=== PATIENT | female | born 1935 | race Caucasian/White ===

== ENCOUNTER 2018-12-07 11:05 | Inpatient (IN) ==
--- NOTE | 2018-12-07 11:53 | XRay Report ---
XR ankle RT min 3V routine CLINICAL HISTORY: 83 years-old Female presenting with fall. TECHNIQUE: Frontal, oblique, and lateral views of the right ankle were obtained. COMPARISON: None. FINDINGS: Minimally displaced fracture of the distal fibular metaphysis extending from the posterior cortex pro ximally to the anterior cortex distally as well as with a oblique orientation from the lateral cortex proximally to the medial cortex distally. Ankle mortise remains congruent. Nondisplaced transversely oriented medial malleolar fracture. Suspected posterior malleolar fracture, also nondisplaced. Enthe sophyte at the origin of the plantar fascia. Advanced degenerative changes at the tarsometatarsal art iculations. Diffuse surrounding soft tissue edema at the level of the ankle and in the lower leg and foot. IMPRESSION: Minimally displaced to nondisplaced trimalleolar fracture. No malalignment of the ankle mortise at th is time. Electronically signed by: Bertram Telles M.D. 12/07/2018 11:52 AM
--- NOTE | 2018-12-07 11:55 | XRay Report ---
XR hip RT 2V w pelvis CLINICAL HISTORY: 83 years-old Female presenting with fall this morning, right hip pain, history of r ight hip replacement. TECHNIQUE: Single frontal view of the pelvis and frontal and frog-leg lateral views of the right hip were obtained. COMPARISON: 04/08/2015. FINDINGS: Post surgical changes of total right hip arthroplasty. No periprosthetic fracture or lucency. No hard dalton breakage. Degenerative changes of lower lumbar spine. Sacral iliac joints, pubic symphysis, and left hip joint congruent. Arcuate lines of the sacrum intact. Bony pelvis intact apart from postsurgi jay jay change. No radiographic soft tissue abnormality. IMPRESSION: 1. Total right hip arthroplasty without evidence of complication. 2. No acute osseous injury of the pelvis or right hip. Electronically signed by: Bertram Telles M.D. 12/07/2018 11:53 AM
[2018-12-07] MEDS ORDERED: HYDROCODONE/ACETAMOPHEN 5/325MG TAB PO STA (12:07)
--- NOTE | 2018-12-07 13:00 | History & Physical Report ---
Date of Service December 07, 2018 Assessment & Plan (1) Closed displaced trimalleolar fracture of right ankle: Mechanical Fall Closed right ankle fracture Ankle X ray:Minimally displaced to nondisplaced trimalleolar fracture. No malalignment of the ankle mortise at this time. Splint placed while in ED Pain control Orthopedics consulted bowel regimen to prevent constipation PT/OT May need rehab Case management consulted Depression Continue Sertraline Dyslipidemia Continue atorvastatin Hypothyroidism Continue Levothyroxine H/o pulmonary embolism Off Coumadin since 1 month as per recommendations from PCP H/O urinary incontinence Dementia No acute issues DVT Px: Lovenox SQ Code Status DNI/DNR as per my discussion with the patient Disposition: May need Rehab placement History of Present Illness Chief Complaint: Mechanical Fall Primary Care Provider: nIes Loredo DO Patient is an 83-year-old female with history of depression, dyslipidemia, hypothyroidism, h/o pulmonary embolism, urinary incontinence, dementia and other problems presents with history of a fall and right leg pain since the fall. Patient states that she was visiting [place] today and after she parked her car, she was trying to put a coin in parking meter and accidentally slipped curbside and fell on her right side. Patient complains of pain in her right ankle since the fall, 2/10 intensity, aching type. Denies any numbness, tingling, weakness. Also denies any head trauma, loss of consciousness, dizziness. Admits to having mild frontal headache. Patient's right leg was splinted while in ED. She also had a fall 3 weeks ago resulting in right great toe fracture. Denies any history of chest pain, SOB, palpitations, orthopnea, PND, dizziness, pedal edema, diaphoresis, cough, wheezing, hemoptysis, fever, chills, change in vision, double/blurry vision, vertigo, slurred speech, facial deformity, nausea, vomiting, abdominal pain, blood in stools, diarrhea, change in appetite, weight loss, dysuria, hematuria, recent change in medications. Allergies Allergy/AdvReac Type Severity Reaction Status Date / Time No Known Allergies Allergy Unverified 12/07/18 12:27 Home Medications Home Medications Medication Instructions Recorded Confirmed Type alendronate 70 mg PO Q7D 12/07/18 12/07/18 History atorvastatin 10 mg PO DAILY 12/07/18 12/07/18 History gabapentin 600 mg PO TID 12/07/18 12/07/18 History levothyroxine 50 mcg PO DAILY 12/07/18 12/07/18 History sertraline 100 mg PO DAILY 12/07/18 12/07/18 History Past Med/Surg History Medical History Dementia Depression History of pulmonary embolism Hyperlipidemia Hypothyroidism PE (pulmonary thromboembolism) Urine incontinence Surgical History S/P cholecystectomy Family History Mother Cancer Father Diabetes Social History Preferred Language: Kazakh Feels Safe at Home: Yes Smoking Status: Never smoker Hx Alcohol Use: No Hx Substance Use: No Review of Systems Review of Systems: All systems reviewed & are unremarkable except as noted in HPI & below Physical Exam Physical Exam: Physical Exam: Vitals signs as noted above General Appearance:Moderately built and nourished, no apparent distress Head: normocephalic, Atraumatic Eyes: normal inspection, EOMI Neck: supple, Trachea midline Respiratory/Chest: Normal breath sounds, Clear to auscultation, No accessory muscle use Cardiovascular: S1, S2, No murmur Abdomen/GI:Soft, Non tender, Bowel sounds present, no guarding/rigidity Extremities/Musculoskelatal:normal inspection, no edema, R ight Lower extremity in splint Neurologic/Psych:AAOX3, grossly no focal neurological deficits Skin: normal color, warm Results & Data Vital Signs (Past 12 Hours) Vital Signs Temp Pulse Resp BP Pulse Ox 12/07/18 11:10 36.6 C 70 18 166/90 H 97 Laboratory Results Short CBC 12/07/18 Range/Units 13:08 WBC 9.36 (4.8-10.8) K/uL Hgb 14.5 (12.0-16.0) g/dL Hct 43.9 (37-47) % Plt Count 244 (130-400) K/uL BMP 12/07/18 13:08 Sodium 143 Potassium 4.4 Chloride 108 H Carbon Dioxide 30 BUN 18 Creatinine 0.79 Glucose 96 Calcium 9.0 Liver Function 12/07/18 Range/Units 13:08 Total Bilirubin 0.3 (0.2-1) mg/dl AST 24 (15-37) U/L ALT 22 (12-78) U/L Alkaline Phosphatase 72 (45-117) U/L Albumin 3.6 (3.4-5.0) gm/dl Diagnostic Findings Right Ankle X ray: Minimally displaced to nondisplaced trimalleolar fracture. No malalignment of the ankle mortise at this time. Right Hip X ray: 1. Total right hip arthroplasty without evidence of complication. 2. No acute osseous injury of the pelvis or right hip. Medications Administered Home Medications Medication Instructions Recorded Confirmed alendronate 70 mg PO Q7D 12/07/18 12/07/18 atorvastatin 10 mg PO DAILY 12/07/18 12/07/18 gabapentin 600 mg PO TID 12/07/18 12/07/18 levothyroxine 50 mcg PO DAILY 12/07/18 12/07/18 sertraline 100 mg PO DAILY 12/07/18 12/07/18 (1) Closed displaced trimalleolar fracture of right ankle Encounter type: initial encounter Qualified Code(s): S82.851A - Displaced trimalleolar fracture of right lower leg, initial encounter for closed fracture
[2018-12-07 13:17] LABS: Basophils # (auto) 0.04 K/uL (0-0.2); Basophils % (auto) 0.4 %; Eosinophils # (auto) 0.23 K/uL (0-0.5); Eosinophils % (auto) 2.5 %; Hematocrit (blood only) 43.9 % (37-47); Hemoglobin 14.5 g/dL (12.0-16.0); Immature Granulocytes # (auto) 0.01 K/uL (0.00-0.02); Immature Granulocytes % (auto) 0.1 %; Lymphocytes # (auto) 1.38 K/uL (1.2-3.4); Lymphocytes % (auto) 14.7 %; Mean Corpuscular Volume 96.9 fL (80-100); Mean Platelet Volume 9.2 fL (7.4-10.4); Monocytes # (auto) 0.84 K/uL (0.11-0.59); Neutrophils # (auto) 6.86 K/uL (1.4-6.5); Neutrophils % (auto) 73.3 %; Platelet Count 244 K/uL (130-400); RDW Coefficient of Variation 14.2 % (11.5-14.5); Red Blood Count 4.53 M/uL (4.2-5.4); White Blood Count 9.36 K/uL (4.8-10.8)
[2018-12-07 13:36] LABS: Albumin Globulin Ratio 0.9 (0.9-2); Albumin Level 3.6 gm/dl (3.4-5.0); BUN Creatinine Ratio 22.8 (10-20); Bilirubin,Total 0.3 mg/dl (0.2-1); Creatinine Clr Calc Pharmacy 50.7 ml/min; Est GFR (African American) 81.4; Est GFR (Non-African American) 70.2; Globulin 3.9 gm/dl (2.5-4.0); Potassium 4.4 mmol/L (3.5-5.1); Total Protein 7.5 gm/dl (6.4-8.2)
[2018-12-07] MEDS ORDERED: MoRPHine SULFATE 2 MG/ML CARP IV PRN (15:51)
[2018-12-07] MEDS ORDERED: DOCUSATE SODIUM 100 MG CAP PO PRN (15:51)
[2018-12-07] MEDS ORDERED: POLYETHYLENE (MIRALAX) 17 GM PACK PO PRN (15:51)
[2018-12-07] MEDS ORDERED: ACETAMINOPHEN 325 MG TAB PO PRN (15:51)
[2018-12-07] MEDS ORDERED: ONDANSETRON INJ 2 MG/ML 2 ML VIAL IV PRN (15:51)
[2018-12-07] MEDS: GABAPENTIN 600 MG TAB PO SCH ×2 (16:41→20:00)
[2018-12-07] MEDS: OXYCODONE/ACETAMINOPHEN 5mg/325mg TAB PO PRN (16:42)
[2018-12-07] MEDS: ENOXAPARIN INJ 40 MG/0.4 ML SYR SQ SCH (16:43)
--- NOTE | 2018-12-07 19:05 | Emergency Department Note ---
Entered by Les Duran acting as a scribe for Mac Connelly MD ED Provider Note CHIEF COMPLAINT: right ankle injury HISTORY OF PRESENT ILLNESS: The patient is an 83 y/o female who presents to the emergency department for evaluation of constant right ankle pain that began prior to arrival. The patient states she was going to put money in the meter when she tripped on the curb and twisted her ankle. She notes she was helped up by two guys one of which called the ambulance for her. The patient reports that her right ankle hurts 9/10, with slight pain in her right hip as well. Pt denies LOC, headache, fevers, chills, diaphoresis, visual changes, neck pain, chest pain, breathing difficulties, nausea, vomiting, abdominal pain, back pain, melena, hematochezia, urinary symptoms, numbness, weakness, lymphadenopathy, rash, or other complaints. REVIEW OF SYSTEMS: See HPI for pertinent positives and negatives. A total of ten systems were reviewed and were otherwise negative. PMHx/PSHx: Hypothyroidism, PE, S/P cholecystectomy SOCIAL HISTORY: Patient lives at home. PHYSICAL EXAM: GENERAL: Awake, alert, well-appearing, in no distress HENT: Normocephalic, atraumatic. Oropharynx unremarkable. EYES: PERRL. Normal conjunctiva. Sclera non-icteric. NECK: Inspection normal. Non-tender. Supple. No nuchal rigidity. FROM. No mireille s. RESPIRATORY: Clear to auscultation. No wheezes. No rales. Normal respiratory effort. CARDIAC: Normal rate. Normal rhythm. No murmurs. No rubs. Extremities warm and well perfused. Pulses equal. No JVD. GI: Soft, non-distended. No tenderness to palpation. No rebound or guarding. No masses. RECTAL: Deferred. MUSCULOSKELETAL: Atraumatic. Chest examination reveals no tenderness. The back is symmetrical on inspection without obvious abnormality. There is no CVA tenderness to palpation. No joint edema. LOWER EXTREMITIES: Calves are equal size bilaterally and non-tender. No edema. No discoloration. Moderate swelling on lateral aspect of right ankle. Tender over lateral malleolus. Good distal pulses. No Achilles tenderness or medial malleolus tenderness. NEURO: Normal sensorium. No sensory or motor deficits noted. SKIN: No rash or jaundice noted. EMERGENCY DEPARTMENT COURSE: 1120: Past medical records reviewed. The patient was evaluated in room C03, and a complete history and physical examination were performed. 1208: I checked on the patient and updated her on his results. 1220: I spoke with [facility], they recommend non weight barring and splinting. They will reevaluate her in one week. They believe she may not need operative intervention following review of the x-rays. 1241: I spoke with Yoli MILNER [facility] for Dr. Archer. She will evaluate for further management. MEDICAL DECISION MAKING: C3 Triage Nursing notes reviewed and agree them. The patient's history was concerning for traumatic injury. Differential diagnosis: Etiologies such as fracture, dislocation, neurovascular compromise, compartment syndrome, soft tissue injury, as well as others were entertained. Physical examination: Consistent with an isolated right leg injury. ER treatment provided: Splinting Oral Bennet Ice On reassessment the patient felt better. Diagnostics interpreted by me: The labs revealed an unremarkable CBC, chemistry panel. Imaging studies: Xrays performed and revealed no obvious hip injury. There is a trimalleolar nondisplaced right ankle fracture present. Consultation: A consultation was placed with [facility] and the case was discussed with Sincere Carrasquillo PA-C. Nonoperative management was recommended. Patient is nonweightbearing. Because the patient will not be able to ambulate safely internal medicine was consulted. The case was discussed with the [facility] hospitalist team. The patient was evaluated in the ER for further treatment. SPLINTING: Indication: Right ankle fracture The injured extremity was identified. The patient was prepped and measured for the placement of a short leg posterior with stirrup orthoglass splint. Splint applied in the standard fashion over a layer of webril and secured using an elastic bandage. Set into a position of function. Normal neurovascular status after placement verified. The patient tolerated the procedure well and the care of the splint was discussed with the patient/family. No complications. IMPRESSION: right ankle trimalleolar fracture, fall, right hip contusion. PLAN: Admit The scribe's documentation has been prepared under my direction and personally reviewed by me in its entirety. I confirm that the note above accurately refl ects all work, treatment, procedures, and medical decision making performed by me. Impression & Plan Closed displaced trimalleolar fracture of right ankle, Fall, Contusion of hip Past Med/Surg History Medical History Dementia Depression History of pulmonary embolism Hyperlipidemia Hypothyroidism PE (pulmonary thromboembolism) Urine incontinence Surgical History S/P cholecystectomy Family History Mother Cancer Father Diabetes Social History Preferred Language: Azerbaijani Communication Ability: Effective Beliefs That Will Affect Care: None Current Living Situation: Spouse Feels Safe at Home: Yes Smoking Status: Never smoker Hx Alcohol Use: No Hx Substance Use: No Results & Data Vital Signs Vital Signs - 24 hr 12/07/18 11:10 Temperature 36.6 C Temperature Source Oral Sepsis Recent Fever Within 48 Hours No Sepsis New/Unexplained Change in Mental Status No Sepsis Action Taken by Nursing No Action Required Pulse Rate 70 Respiratory Rate 18 Respiratory Effort / Characteristics Non-Labored Spontaneous Respiratory Depth Normal Respiratory Pattern Regular Blood Pressure 166/90 H Blood Pressure Mean 115 Pulse Oximetry 97 Oxygen Delivery Method Room Air Home Medications Current Medication List: was personally reviewed by me Laboratory Data Result diagrams: 12/07/18 13:08 12/07/18 13:08 Lab Results 12/07/18 12/07/18 Range/Units 13:08 13:08 WBC 9.36 (4.8-10.8) K/uL RBC 4.53 (4.2-5.4) M/uL Hgb 14.5 (12.0-16.0) g/dL Hct 43.9 (37-47) % MCV 96.9 (80-100) fL MCH 32.0 (25-34) pg MCHC 33.0 (32-36) g/dL RDW Std Deviation 50.0 H (36.4-46.3) fL RDW Coeff of Nadia 14.2 (11.5-14.5) % Plt Count 244 (130-400) K/uL MPV 9.2 (7.4-10.4) fL Immature Gran % (Auto) 0.1 % Neut % (Auto) 73.3 % Lymph % (Auto) 14.7 % [place] % (Auto) 9.0 % Eos % (Auto) 2.5 % Baso % (Auto) 0.4 % Immature Gran # (Auto) 0.01 (0.00-0.02) K/uL Neut # (Auto) 6.86 H (1.4-6.5) K/uL Lymph # (Auto) 1.38 (1.2-3.4) K/uL [place] # (Auto) 0.84 H (0.11-0.59) K/uL Eos # (Auto) 0.23 (0-0.5) K/uL Baso # (Auto) 0.04 (0-0.2) K/uL Sodium 143 (136-145) mmol/L Potassium 4.4 (3.5-5.1) mmol/L Chloride 108 H (98-107) mmol/L Carbon Dioxide 30 (21-32) mmol/L Anion Gap 5.0 (3-11) BUN 18 (7-18) mg/dl Creatinine 0.79 (0.6-1.2) mg/dl Est Cr Clr Drug Dosing 50.7 ml/min Est GFR ( Amer) 81.4 Est GFR (Non-Af Amer) 70.2 BUN/Creatinine Ratio 22.8 H (10-20) Glucose 96 (70-99) mg/dl Calcium 9.0 (8.5-10.1) mg/dl Total Bilirubin 0.3 (0.2-1) mg/dl AST 24 (15-37) U/L ALT 22 (12-78) U/L Alkaline Phosphatase 72 (45-117) U/L Total Protein 7.5 (6.4-8.2) gm/dl Albumin 3.6 (3.4-5.0) gm/dl Globulin 3.9 (2.5-4.0) gm/dl Albumin/Globulin Ratio 0.9 (0.9-2) Specimen Hemolysis Administered Medications Enoxaparin Sodium (Lovenox) 40 mg SQ QAM [facility] Stop: 01/06/19 16:29 Last Admin: 12/07/18 16:43 Dose: 40 mg Documented by: [id number] Gabapentin (Neurontin) 600 mg PO TID [facility] Stop: 01/06/19 15:50 Last Admin: 12/07/18 16:41 Dose: 600 mg Documented by: [id number] Oxycodone/Acetaminophen (Percocet 5mg/325mg) 1 tab PO Q4H PRN PRN Reason: Pain Stop: 12/21/18 15:50 Last Admin: 12/07/18 16:42 Dose: 1 tab Documented by: [id number] Discontinued Medications Hydrocodone Bitart/Acetaminophen (Bennet 5/325) 1 tab PO NOW STA Stop: 12/07/18 12:08 Last Admin: 12/07/18 12:24 Dose: 1 tab Documented by: [id number] Imaging Data Radiologist's Impression: Radiology results as stated below per my review and the radiologist's interpretation: XR ankle RT min 3V routine CLINICAL HISTORY: 83 years-old Female presenting with fall. TECHNIQUE: Frontal, oblique, and lateral views of the right ankle were obtained. COMPARISON: None. FINDINGS: Minimally displaced fracture of the distal fibular metaphysis extending from the posterior cortex proximally to the anterior cortex distally as well as with a oblique orientation from the lateral cortex proximally to the medial cortex distally. Ankle mortise remains congruent. Nondisplaced transversely oriented medial malleolar fracture. Suspected posterior malleolar fracture, also nondisplaced. Enthesophyte at the origin of the plantar fascia. Advanced degenerative changes at the tarsometatarsal articulations. Diffuse surrounding soft tissue edema at the level of the ankle and in the lower leg and foot. IMPRESSION: Minimally displaced to nondisplaced trimalleolar fracture. No malalignment of the ankle mortise at this time. Electronically signed by: Bertram Telles M.D. 12/07/2018 11:52 AM XR hip RT 2V w pelvis CLINICAL HISTORY: 83 years-old Female presenting with fall this morning, right hip pain, history of right hip replacement. TECHNIQUE: Single frontal view of the pelvis and frontal and frog-leg lateral views of the right hip were obtained. COMPARISON: 04/08/2015. FINDINGS: Post surgical changes of total right hip arthroplasty. No periprosthetic fracture or lucency. No hardware breakage. Degenerative changes of lower lumbar spine. Sacral iliac joints, pubic symphysis, and left hip joint congruent. Arcuate lines of the sacrum intact. Bony pelvis intact apart from postsurgical change. No radiographic soft tissue abnormality. IMPRESSION: 1. Total right hip arthroplasty without evidence of complication. 2. No acute osseous injury of the pelvis or right hip. Electronically signed by: Bertram Telles M.D. 12/07/2018 11:53 AM Blood Pressure Blood Pressure Findings: Elevated blood pressure Blood Pressure Disposition: further management by hospitalist Discharge Plan Visit Data *Final* Discharge Date/Time: 12/07/18 14:25 Chief Complaint: Ankle Pain Stated Complaint: fall/ R ankle pain ED Provider: Mac Connelly Discharge Problem: Closed displaced trimalleolar fracture of right ankle, Fall, Contusion of hip Patient Disposition: Admitted As Inpatient Discharge Instructions Interventions: ED Discharge Assessment Last Done: 12/07/18 14:25 Discharge Problem: Closed displaced trimalleolar fracture of right ankle Qualifiers: Encounter type: initial encounter Qualified Code(s): S82.851A - Displaced trimalleolar fracture of right lower leg, initial encounter for closed fracture Fall Qualifiers: Encounter type: initial encounter Qualified Code(s): W19.XXXA - Unspecified fall, initial encounter Contusion of hip Qualifiers: Encounter type: initial encounter Laterality: right Qualified Code(s): S70.01XA - Contusion of right hip, initial encounter The scribe's documentation has been prepared under my direction and personally reviewed by me in its entirety. I confirm that the note above accurately reflects all work, treatment, procedures, and medical decision making performed by me.
[2018-12-08] MEDS: OXYCODONE/ACETAMINOPHEN 5mg/325mg TAB PO PRN ×4 (02:51→20:24)
[2018-12-08] MEDS: LEVOTHYROXINE SODIUM 50 MCG TABLET PO SCH ×2 (05:31→07:46)
[2018-12-08 06:41] LABS: Hematocrit (blood only) 40.6 % (37-47); Hemoglobin 13.3 g/dL (12.0-16.0); Mean Corpuscular Hemoglobin 31.4 pg (25-34); Mean Corpuscular Hgb Conc 32.8 g/dL (32-36); Mean Platelet Volume 9.3 fL (7.4-10.4); Platelet Count 228 K/uL (130-400); RDW Standard Deviation 49.4 fL (36.4-46.3); Red Blood Count 4.23 M/uL (4.2-5.4)
[2018-12-08 07:16] LABS: BUN Creatinine Ratio 17.5 (10-20); Calcium 8.7 mg/dl (8.5-10.1); Creatinine Clr Calc Pharmacy 41.5 ml/min; Est GFR (African American) 71.4; Est GFR (Non-African American) 61.6; Magnesium 2.3 mg/dl (1.8-2.4); Potassium 4.2 mmol/L (3.5-5.1)
[2018-12-08] MEDS: ATORVASTATIN 10 MG TAB PO SCH (08:43)
[2018-12-08] MEDS: SERTRALINE HCL 100 MG TABLET PO SCH (08:43)
[2018-12-08] MEDS: ENOXAPARIN INJ 40 MG/0.4 ML SYR SQ SCH (08:44)
[2018-12-08] MEDS: GABAPENTIN 600 MG TAB PO SCH ×3 (08:44→20:24)
--- NOTE | 2018-12-08 10:54 | Orthopedic Consultation ---
Date of Consultation December 08, 2018 Assessment & Plan (1) Closed displaced trimalleolar fracture of right ankle: X-rays were reviewed with Dr. Lozano yesterday afternoon. Her fracture is minimally displaced at this time. She can be treated nonoperatively in the splint. Continue ice and elevation at this time. Continue pain control. Patient states that she had seen Dr. Cohen in the past. She can follow-up with him in the office or with in the next 7 to 10 days. She should remain nonweightbearing on the right lower extremity with using a walker or crutches for ambulation. Thank you for this consult. History of Present Illness Reason for Consultation: Right ankle fracture Attending Physician: Ibeth Velarde MD History of Present Illness Patient is a 83-year-old white female who was admitted to the hospital last night due to mechanical fall while she was downtown [place]. She states that she had [address] and that she came around to put money in the meter, she ended up tripping on part of the curb and she fell to the ground onto her right side. She had pain in her right ankle and a little bit of pain in her right hip. He was unable to ambulate and was brought to the emergency room at [facility]. X-rays were taken and was found that she had a minimally displaced trimalleolar ankle fracture. We discussed the case with the ER physician late afternoon yesterday and the patient was placed into a posterior splint with a medial lateral stirrup. She was then admitted to the medical service for ambulation dysfunction. Currently she is lying in bed awake and alert. She states she is having some mild pain in the ankle at this point in time. She has no other complaints. She denies any loss of consciousness after the fall. She denies any shortness of breath, chest pain, lightheadedness prior to or after the fall. Allergies Allergy/AdvReac Type Severity Reaction Status Date / Time No Known Allergies Allergy Unverified 12/07/18 12:27 Home Medications Home Medications Medication Instructions Recorded Confirmed Type alendronate 70 mg PO Q7D 12/07/18 12/07/18 History atorvastatin 10 mg PO DAILY 12/07/18 12/07/18 History gabapentin 600 mg PO TID 12/07/18 12/07/18 History levothyroxine 50 mcg PO DAILY 12/07/18 12/07/18 History sertraline 100 mg PO DAILY 12/07/18 12/07/18 History Patient History Medical History Dementia Depression History of pulmonary embolism Hyperlipidemia Hypothyroidism PE (pulmonary thromboembolism) Urine incontinence Surgical History S/P cholecystectomy Family History Mother Cancer Father Diabetes Social History Preferred Language: [place] Communication Ability: Effective Beliefs That Will Affect Care: None Current Living Situation: Spouse Feels Safe at Home: Yes Smoking Status: Never smoker Hx Alcohol Use: No Hx Substance Use: No Physical Exam Physical Exam: Patient is a well-developed well-nourished white female. Alert and oriented x3. No acute distress. Focusing the exam on her right lower extremity, she has a posterior splint applied to the right foot and ankle. It is clean, dry, and intact. Toes are pink and warm with good sensation. Toes are mobile. Capillary refill is less than 2 seconds. She has no pain on palpation of her right knee. No pain over the lateral hip at this time. She is able to take the knee and hip through gentle range of motion at this time. Left lower extremity is essentially benign at this time and range of motion is intact with the hip knee and ankle. Upper extremities are unaffected and she is nontender at the shoulders elbows and wrist. She denies any neck pain at this time and denies any thoracic or low back pain. Results & Data Vital Signs (Past 12 Hours) Vital Signs Temp Pulse Resp BP Pulse Ox 12/08/18 07:21 36.6 C 70 16 98/60 L 95 12/07/18 23:30 36.7 C 68 16 125/70 94 Diagnostic Findings atient: LILLIAN GARG Date: 12/07/18 MR#: [id number]: [address] Acct ID:[id number]: Date: 1935City Zip: [place] [address] Age: 83Location: ED Sex: F Room/Bed: Att Phy:Diagnosis: fall/ R ankle pain Mariann Phy: Ines Loredo DOService Date: 12/07/18 Fam Phy:Interpreting Phy: Bertram Telles MD Admit Phy: Ordering Phy: Mac Connelly MD cc: ~ XR ankle RT min 3V routine CLINICAL HISTORY: 83 years-old Female presenting with fall. TECHNIQUE: Frontal, oblique, and lateral views of the right ankle were obtained. COMPARISON: None. FINDINGS: Minimally displaced fracture of the distal fibular metaphysis extending from the posterior cortex proximally to the anterior cortex distally as well as with a oblique orientation from the lateral cortex proximally to the medial cortex distally. Ankle mortise remains congruent. Nondisplaced transversely oriented medial malleolar fracture. Suspected posterior malleolar fracture, also nondisplaced. Enthesophyte at the origin of the plantar fascia. Advanced degenerative changes at the tarsometatarsal articulations. Diffuse surrounding soft tissue edema at the level of the ankle and in the lower leg and foot. IMPRESSION: Minimally displaced to nondisplaced trimalleolar fracture. No malalignment of the ankle mortise at this time. Electronically signed by: Bertram Telles M.D. 12/07/2018 11:52 AM XR hip RT 2V w pelvis CLINICAL HISTORY: 83 years-old Female presenting with fall this morning, right hip pain, history of right hip replacement. TECHNIQUE: Single frontal view of the pelvis and frontal and frog-leg lateral views of the right hip were obtained. COMPARISON: 04/08/2015. FINDINGS: Post surgical changes of total right hip arthroplasty. No periprosthetic fracture or lucency. No hardware breakage. Degenerative changes of lower lumbar spine. Sacral iliac joints, pubic symphysis, and left hip joint congruent. Arcuate lines of the sacrum intact. Bony pelvis intact apart from postsurgical change. No radiographic soft tissue abnormality. IMPRESSION: 1. Total right hip arthroplasty without evidence of complication. 2. No acute osseous injury of the pelvis or right hip. Electronically signed by: Bertram Telles M.D. 12/07/2018 11:53 AM (1) Closed displaced trimalleolar fracture of right ankle Encounter type: initial encounter Qualified Code(s): S82.851A - Displaced trimalleolar fracture of right lower leg, initial encounter for closed fracture
--- NOTE | 2018-12-08 12:35 | Hospitalist Progress Note ---
Date of Service December 08, 2018 Assessment & Plan (1) Closed displaced trimalleolar fracture of right ankle: Following a mechanical fall Ankle X ray showed Minimally displaced to nondisplaced trimalleolar fracture. No malalignment of the ankle mortise at this time. Splint placed while in ED Pain control. Educated patient on effects of narcotics and that this will be used at the smallest possible dose for adequate control Orthopedics evaluated. No intervention at this time. Will follow up with them outpatient Follow up PT eval as patient will need rehab Avoid weight bearing on right leg Due to risk of VTE with her reduced ambulation with the fractures and previous PE, patient will benefit from anticoagulation for prophylaxis in the interim until patient is more ambulatory Patient is already on alendronate (home medication) (2) Depression: Stable. Continue sertraline (3) Hypothyroidism: Continue levothyroxine (4) History of pulmonary embolism: Patient reported that warfarin was just discontinue a month ago. Due to risk of VTE with her reduced ambulation with the fractures and previous PE, patient will benefit from anticoagulation for prophylaxis in the interim until patient is more ambulatory Currently on lovenox Subjective Patient reports pain at fracture site but stated pain was well controlled with medications Has no other complaints Review of Systems Review of Systems: All systems reviewed and unremarkable except for mentioned above. Physical Exam Physical Exam: General: No acute distress and not ill appearing Eyes: PERRL, conjunctivae normal, not pale, anicteric sclerae, EOM intact bilaterally ENMT: External ear and nose normal, oropharynx normal Neck: Normal visual inspection, no tracheal deviation, no swelling noted Respiratory: Normal respiratory effort, no respiratory distress, lungs clear to auscultation, no crackles and no wheezes Cardiovascular: Pulse is RRR. S1 S2 Gastrointestinal (Abdomen): Abdomen is not distended, soft, non-tender to palpation, no guarding, no palpable hepatosplenomegaly, normal bowel sounds Musculoskeletal: No cyanosis or clubbing, Right leg in cast Neurologic: Alert and oriented x 3, No focal weakness, sensation grossly intact Psychiatric: Alert and oriented x 3, euthymic affect Results & Data Vital Signs (Past 12 Hours) Vital Signs Temp Pulse Resp BP Pulse Ox 12/08/18 07:21 36.6 C 70 16 98/60 L 95 Laboratory Results Laboratory Results - last 24 hr 12/08/18 12/08/18 06:24 06:24 WBC 7.50 RBC 4.23 Hgb 13.3 Hct 40.6 MCV 96.0 MCH 31.4 MCHC 32.8 RDW Std Deviation 49.4 H RDW Coeff of Nadia 14.0 Plt Count 228 MPV 9.3 Sodium 139 Potassium 4.2 Chloride 107 Carbon Dioxide 26 Anion Gap 6.0 BUN 15 Creatinine 0.88 Est Cr Clr Drug Dosing 41.5 Est GFR ( Amer) 71.4 Est GFR (Non-Af Amer) 61.6 BUN/Creatinine Ratio 17.5 Glucose 90 Calcium 8.7 Magnesium 2.3 Diagnostic Findings Right ankle xray -Minimally displaced to nondisplaced trimalleolar fracture. No malalignment of the ankle mortise at this time. (1) Closed displaced trimalleolar fracture of right ankle Encounter type: initial encounter Qualified Code(s): S82.851A - Displaced trimalleolar fracture of right lower leg, initial encounter for closed fracture
[2018-12-09] MEDS: LEVOTHYROXINE SODIUM 50 MCG TABLET PO SCH (05:54)
[2018-12-09] MEDS: GABAPENTIN 600 MG TAB PO SCH ×3 (08:55→19:55)
[2018-12-09] MEDS: SERTRALINE HCL 100 MG TABLET PO SCH (08:55)
[2018-12-09] MEDS: ATORVASTATIN 10 MG TAB PO SCH (08:55)
[2018-12-09] MEDS: ENOXAPARIN INJ 40 MG/0.4 ML SYR SQ SCH (08:55)
[2018-12-09] MEDS: OXYCODONE/ACETAMINOPHEN 5mg/325mg TAB PO PRN (10:44)
--- NOTE | 2018-12-09 11:19 | Hospitalist Progress Note ---
Date of Service December 09, 2018 Assessment & Plan (1) Closed displaced trimalleolar fracture of right ankle: Following a mechanical fall Ankle X ray showed Minimally displaced to nondisplaced trimalleolar fracture. No malalignment of the ankle mortise at this time. Splint placed Pain control. Optimize bowel regimen as patient is constipated Plan to discharge to rehab on Tuesday Avoid weight bearing on right leg (2) Depression: Stable. Continue sertraline (3) Hypothyroidism: Continue levothyroxine (4) History of pulmonary embolism: Patient reported that warfarin was just discontinue a month ago. Currently on lovenox for DVT prophylaxis Subjective Patient reports she just finished working with PT and having severe pain on right foot. She stated she just got pain meds a few minutes ago. Reports she has not moved her bowel in 2 days. Stated she usually moves her bowel daily. Still passes flatus Review of Systems Review of Systems: All systems reviewed and unremarkable except for mentioned above. Physical Exam Physical Exam: General: No acute distress Eyes: PERRL, conjunctivae normal, not pale, anicteric sclerae, EOM intact bilaterally ENMT: External ear and nose normal, oropharynx normal Neck: Normal visual inspection, no tracheal deviation, no swelling noted Respiratory: Normal respiratory effort, no respiratory distress, lungs clear to auscultation, no crackles and no wheezes Cardiovascular: Pulse is RRR. S1 S2 Gastrointestinal (Abdomen): Abdomen is not distended, soft, non-tender to palpation, no guarding, no palpable hepatosplenomegaly, normal bowel sounds Musculoskeletal: Right LE in splint Neurologic: Alert and oriented x 3 Results & Data Vital Signs (Past 12 Hours) Vital Signs Temp Pulse Resp BP Pulse Ox 12/09/18 07:20 36.7 C 79 18 143/67 H 93 (1) Closed displaced trimalleolar fracture of right ankle Encounter type: initial encounter Qualified Code(s): S82.851A - Displaced trimalleolar fracture of right lower leg, initial encounter for closed fracture
[2018-12-09] MEDS: POLYETHYLENE (MIRALAX) 17 GM PACK PO SCH (12:26)
[2018-12-10] MEDS: OXYCODONE/ACETAMINOPHEN 5mg/325mg TAB PO PRN (05:20)
[2018-12-10] MEDS: LEVOTHYROXINE SODIUM 50 MCG TABLET PO SCH (05:20)
[2018-12-10] MEDS: ATORVASTATIN 10 MG TAB PO SCH (08:40)
[2018-12-10] MEDS: SERTRALINE HCL 100 MG TABLET PO SCH (08:40)
[2018-12-10] MEDS: POLYETHYLENE (MIRALAX) 17 GM PACK PO SCH (08:41)
[2018-12-10] MEDS: GABAPENTIN 600 MG TAB PO SCH ×3 (08:41→20:29)
[2018-12-10] MEDS: ENOXAPARIN INJ 40 MG/0.4 ML SYR SQ SCH (08:41)
--- NOTE | 2018-12-10 12:38 | Hospitalist Progress Note ---
Date of Service December 10, 2018 Assessment & Plan (1) Closed displaced trimalleolar fracture of right ankle: Following a mechanical fall Ankle X ray showed Minimally displaced to nondisplaced trimalleolar fracture. No malalignment of the ankle mortise at this time. Pain controlled Plan to discharge to rehab tomorrow Avoid weight bearing on right leg (2) Depression: Stable. Continue sertraline (3) Hypothyroidism: Continue levothyroxine (4) History of pulmonary embolism: Currently on lovenox for DVT prophylaxis Subjective Patient reports pain is better controlled Has no other complaints. Able to go to bathroom with walker. Review of Systems Review of Systems: All systems reviewed and unremarkable except for mentioned above. Physical Exam Physical Exam: General: Patient is in no distress Eyes: PERRL, conjunctivae normal, not pale, anicteric sclerae, EOM intact bilaterally ENMT: External ear and nose normal, oropharynx normal Neck: Normal visual inspection, no tracheal deviation, no swelling noted Respiratory: Normal respiratory effort, no respiratory distress, lungs clear to auscultation, no crackles and no wheezes Cardiovascular: Pulse is RRR. S1 S2 Gastrointestinal (Abdomen): Abdomen is not distended, soft, non-tender to palpation, no guarding, no palpable hepatosplenomegaly, normal bowel sounds Musculoskeletal: Right LE in splint Neurologic: Alert and oriented x 3 Results & Data Vital Signs (Past 12 Hours) Vital Signs Temp Pulse Resp BP Pulse Ox 12/10/18 07:21 36.5 C 72 20 139/69 94 (1) Closed displaced trimalleolar fracture of right ankle Encounter type: initial encounter Qualified Code(s): S82.851A - Displaced trimalleolar fracture of right lower leg, initial encounter for closed fracture
[2018-12-11] MEDS: LEVOTHYROXINE SODIUM 50 MCG TABLET PO SCH (05:54)
[2018-12-11 06:13] LABS: Creatinine Clr Calc Pharmacy 48.7 ml/min; Est GFR (African American) 86.6; Est GFR (Non-African American) 74.8
[2018-12-11] MEDS ORDERED: ALENDRONATE SODIUM 70 MG TAB PO SCH (07:00)
[2018-12-11] MEDS: POLYETHYLENE (MIRALAX) 17 GM PACK PO SCH (08:27)
[2018-12-11] MEDS: ATORVASTATIN 10 MG TAB PO SCH (08:29)
[2018-12-11] MEDS: GABAPENTIN 600 MG TAB PO SCH ×2 (08:29→14:36)
[2018-12-11] MEDS: SERTRALINE HCL 100 MG TABLET PO SCH (08:30)
[2018-12-11] MEDS: ENOXAPARIN INJ 40 MG/0.4 ML SYR SQ SCH (08:30)
--- NOTE | 2018-12-11 14:20 | Hospitalist Progress Note ---
Date of Service December 11, 2018 Assessment & Plan (1) Closed displaced trimalleolar fracture of right ankle: Following a mechanical fall Ankle X ray showed Minimally displaced to nondisplaced trimalleolar fracture. No malalignment of the ankle mortise at this time. Pain controlled. Has not been requiring much percocet over the past 24hrs. Provided more education on opioid pain meds. Will discharge to rehab with only 3 days script to be used as needed for severe pain Discharge today to follow up with ortho outpatient Avoid weight bearing on right leg (2) Depression: Stable. Continue sertraline (3) Hypothyroidism: Continue levothyroxine (4) History of pulmonary embolism: Currently on lovenox for DVT prophylaxis Please continue anticoagulation until baseline ambulation is achieved due to h/o PE and was on warfarin which was discontinued recently Subjective Patient seen and evaluated this morning. Reports pain is well controlled, usually after ambulating. Review of Systems Constitutional: no problem reported Eyes: no problem reported Ear, Nose, Mouth, Throat: no problem reported Respiratory: no cough, no dyspnea and no pain on inspiration Cardiovascular: no chest pain, no dyspnea on exertion and no palpitations Gastrointestinal: no abdominal pain, no vomiting, no constipation and no diarrhea/loose stools Genitourinary: no problem reported Musculoskeletal: Pain on right leg Neurologic: no problem reported Physical Exam Physical Exam: General: Patient is in no distress Eyes: PERRL, conjunctivae normal, not pale, anicteric sclerae, EOM intact bilaterally ENMT: External ear and nose normal, oropharynx normal Neck: Normal visual inspection, no tracheal deviation, no swelling noted Respiratory: Normal respiratory effort, no respiratory distress, lungs clear to auscultation, no crackles and no wheezes Cardiovascular: Pulse is RRR. S1 S2 Gastrointestinal (Abdomen): Abdomen is not distended, soft, non-tender to palpation, no guarding, no palpable hepatosplenomegaly, normal bowel sounds Musculoskeletal: Right LE in splint Neurologic: Alert and oriented x 3. no focal deficit. Limited exam of right LE due to fracture Results & Data Vital Signs (Past 12 Hours) Vital Signs Temp Pulse Resp BP Pulse Ox 12/11/18 07:25 36.5 C 78 16 169/85 H 97 Laboratory Results Laboratory Results - last 24 hr 12/11/18 05:01 Creatinine 0.75 Est Cr Clr Drug Dosing 48.7 Est GFR ( Amer) 86.6 Est GFR (Non-Af Amer) 74.8 (1) Closed displaced trimalleolar fracture of right ankle Encounter type: initial encounter Qualified Code(s): S82.851A - Displaced trimalleolar fracture of right lower leg, initial encounter for closed fracture
--- NOTE | 2018-12-11 17:32 | Discharge Summary ---
Date of Service December 11, 2018 Admission HPI Per Admitting Provider 83-year-old female with history of depression, dyslipidemia, hypothyroidism, h/o pulmonary embolism, urinary incontinence, dementia and other problems presents with history of a fall and right leg pain since the fall. Patient states that she was visiting [place] today and after she parked her car, she was trying to put a coin in parking meter and accidentally slipped curbside and fell on her right side. Patient complains of pain in her right ankle since the fall, 2/10 intensity, aching type. Denies any numbness, tingling, weakness. Also denies any head trauma, loss of consciousness, dizziness. Admits to having mild frontal headache. Patient's right leg was splinted while in ED. She also had a fall 3 weeks ago resulting in right great toe fracture. Denies any history of chest pain, SOB, palpitations, orthopnea, PND, dizziness, pedal edema, diaphoresis, cough, wheezing, hemoptysis, fever, chills, change in vision, double/blurry vision, vertigo, slurred speech, facial deformity, nausea, vomiting, abdominal pain, blood in stools, diarrhea, change in appetite, weight loss, dysuria, hematuria, recent change in medications. Admission Exam Per Admitting Provider Physical Exam: Vitals signs as noted above General Appearance:Moderately built and nourished, no apparent distress Head: normocephalic, Atraumatic Eyes: normal inspection, EOMI Neck: supple, Trachea midline Respiratory/Chest: Normal breath sounds, Clear to auscultation, No accessory muscle use Cardiovascular: S1, S2, No murmur Abdomen/GI:Soft, Non tender, Bowel sounds present, no guarding/rigidity Extremities/Musculoskelatal:normal inspection, no edema, R ight Lower extremity in splint Neurologic/Psych:AAOX3, grossly no focal neurological deficits Skin: normal color, warm Principal Diagnosis Right ankle fracture (Closed) Discharge Exam General: Patient is in no distress Eyes: PERRL, conjunctivae normal, not pale, anicteric sclerae, EOM intact bilaterally ENMT: External ear and nose normal, oropharynx normal Neck: Normal visual inspection, no tracheal deviation, no swelling noted Respiratory: Normal respiratory effort, no respiratory distress, lungs clear to auscultation, no crackles and no wheezes Cardiovascular: Pulse is RRR. S1 S2 Gastrointestinal (Abdomen): Abdomen is not distended, soft, non-tender to palpation, no guarding, no palpable hepatosplenomegaly, normal bowel sounds Musculoskeletal: Right LE in splint Neurologic: Alert and oriented x 3. no focal deficit. Limited exam of right LE due to fracture Discharge Data Allergies Allergy/AdvReac Type Severity Reaction Status Date / Time No Known Allergies Allergy Unverified 12/07/18 12:27 Consultations 12/07/18 12:41 ED Decision to Admit Stat 12/07/18 15:51 Consult Case Management - Discharge Planning Routine Consult Orthopedic Surgery Routine Ordered Studies Hip/Pelvis xray 1. Total right hip arthroplasty without evidence of complication. 2. No acute osseous injury of the pelvis or right hip. Right ankle xray Minimally displaced to nondisplaced trimalleolar fracture. No malalignment of the ankle mortise at this time. Hospital Course (1) Closed displaced trimalleolar fracture of right ankle: Following a mechanical fall Ankle X ray showed Minimally displaced to nondisplaced trimalleolar fracture. No malalignment of the ankle mortise at this time. Right leg in splint Pain controlled with tylenol prn moderate pain and percocet prn severe pain. Provided more education on opioid pain meds. Discharged to rehab with only 3 da ys script to be used as needed for severe pain To follow up with ortho outpatient Avoid weight bearing on right leg (2) Depression: Stable. Continue sertraline (3) Hypothyroidism: Continue levothyroxine (4) History of pulmonary embolism: Currently on lovenox for DVT prophylaxis Please continue anticoagulation until baseline ambulation is achieved due to h/o PE and was on warfarin which was discontinued recently Total Time Total Time Spent Total Time Spent (In Minutes): 20 Total Time Includes: Examination of the Patient, Discharge Planning and Medication Reconciliation Discharge Plan Discharge Items Patient Disposition: Transfer [facility] Reason For Visit: RIGHT ANKLE FRACTURE Discharge Diagnosis: Right ankle fracture Condition on Discharge: Good Activity: Per Instructions section Activity Comment: Per Physical Therapist recommendations Non-emergency contact: Primary Care Provider Call non-emergency contact if: you have any medication questions and your pain is not controlled Follow-up/Referrals: Shreyas Lozano M.D. [Physician] - Ines Loredo DO [Primary Care Provider] - Diet: Heart Healthy Addtl Attending Provider Instructions: Ms Donald. You came to the hospital after you fell and started having right leg pain. You were evaluated and ankle xray showed Right ankle fracture. Your leg was placed in a splint. You were evaluated by Physical therapist and being discharged to a long-term facility for rehabilitation. Due to your history of blood clot in the lungs, it is recommended that you be on blood thinner at least until you are able to ambulate as much as you were doing before. It is important that you continue with your Primary Doctor after rehab for nilesh nued management. You will also need to follow up with the Orthopedic Doctors in 7 to 10 days for follow up. Due to the severity of your pain, you are being discharged to the rehab on a few doses of opioid medication. Like we discussed, it is important you take this medication for only severe pain due to the side effects. You will be evaluated at the rehab as well and pain medication can be adjusted as needed to avoid prolonged use of opioid pain medication. It is a pleasure taking care of you. Pending Studies at Discharge: No Stand-Alone Forms: My [facility] Skilled Items Patient informed of condition?: Yes DNR: Yes Discharge Level of Care: Skilled Communicable Disease: No Discharge Prognosis: Stable Lines: None Urinary Catheter: No Medications and DC Order Prescriptions: New acetaminophen [Mapap (acetaminophen)] 325 mg Tablet 650 mg PO Q4H PRN (Reason: pain) 30 Days Qty: 0 RF: 0 enoxaparin 40 mg/0.4 mL Syringe 40 mg subcut QAM Qty: 0 RF: 0 oxycodone-acetaminophen [Percocet] 5-325 mg Tablet 1 tab PO Q8H PRN (Reason: pain) 3 Days Qty: 10 RF: 0 docusate sodium 100 mg Capsule 100 mg PO BID PRN (Reason: constipation) 30 Days Qty: 60 RF: 0 polyethylene glycol 3350 [Miralax] 17 gram Powder In Packet 17 g PO DAILY Qty: 30 RF: 0 Continued gabapentin 600 mg tablet 600 mg PO TID RF: 0 atorvastatin 10 mg tablet 10 mg PO DAILY RF: 0 sertraline 100 mg tablet 100 mg PO DAILY RF: 0 levothyroxine 50 mcg tablet 50 mcg PO DAILY RF: 0 alendronate 70 mg Tablet 70 mg PO Q7D RF: 0 Discharge Orders: Discharge Order (Routine); Ordered 12/11/18 Ordered By: Ibeth Josue/Other Patient Handouts: Fx Ankle Admission Data Admit Date/Time: 12/08/18 18:44 Attending Provider: Ibeth Velarde I. Admit Provider: Elieser Archer Primary Care Provider: Ines Loredo Other Providers: Elieser Archer ; Bertram Silvestre Other Interventions: Discharge Summary Assessment (RN) Last Done: 12/11/18 17:02 DC Date/Time DO NOT enter until pt leaves facility: 12/11/18 17:29
== END 2018-12-11 17:29 | DRG 563 ==
LOC: 3N 11:05 → ED 11:05 → SUATTDRO 13:58 → 3N 14:25